=== PATIENT | female | born 1955 | race Caucasian/White ===

== ENCOUNTER 2017-02-27 13:06 | Emergency (ER) | payer OTHER ==
[~2017-02-27] VITALS: Ht 165.1 cm; Wt 102.1 kg
[2017-02-27 13:43] VITALS: BP 172/61
[2017-02-27 14:31] LABS: Basophils # (auto) 0 uL; Eosinophils # (auto) 0.1 uL; Lymphocytes # (auto) 0.3 uL; Mean Corpuscular Volume 78.3 fL (80.0-100.0); Monocytes # (auto) 0.2 uL; Neutrophils # (auto) 2.2 uL; Red Cell Distribution Width 18.1 % (11.8-14.3); White Blood Cell 2.8 10^3/uL (4.4-10.8)
[2017-02-27 14:33] LABS: Basophils % (auto) 0.8 % (0.0-2.0); Eosinophils % (auto) 2.1 % (0.0-7.0); Hematocrit 33.9 % (36.0-46.0); Hemoglobin 11.3 g/dL (12.2-16.2); Lymphocytes % (auto) 10.8 % (10.0-50.0); Mean Corpuscular Hemoglobin 26.2 pg (28.0-32.0); Mean Corpuscular Hgb Conc. 33.4 g/dL (32.0-36.0); Monocytes % (auto) 7.2 % (0.0-12.0); Neutrophils % (auto) 79.1 % (37.0-80.0); Nucleated Red Blood Cells % 0.1 %; Platelet Count (auto) 104 10^3/uL (140-450); Red Blood Cells 4.33 10^6/uL (4.0-5.20)
[2017-02-27 14:45] LABS: Albumin 3.2 g/dL (3.4-5.0); BUN/Creatinine Ratio 14.5; Bilirubin, Total 1.5 mg/dL (0.2-1.0); Potassium 3.4 mmol/L (3.5-5.1); Total Protein 6.5 g/dL (6.4-8.2)
== END 2017-02-27 16:30 | disposition left against medical advice (07) ==
LOC: ER 13:06 → EDBD 13:06 → ER 16:30
DX: R10.84 Generalized abdominal pain (principal); R11.2 Nausea with vomiting, unspecified; Z53.21 Procedure and treatment not carried out due to patient leaving prior to being seen by health care provider
CPT/HCPCS: 36415; 80053; 85025; 93005